=== PATIENT | female | born 1995 | race African-American/Black ===

== ENCOUNTER 2023-06-18 11:38 | Emergency (ER) | payer OTHER ==
[2023-06-18 12:23] VITALS: BP 126/75; PULSE 85; RESP 18; TEMP 99.6; BMI 24.7
[2023-06-18] MEDS ORDERED: KETOROLAC TROMETHAMINE 30 MG/1 ML VIAL ONE (13:13)
[2023-06-18] MEDS ORDERED: ACETAMINOPHEN 500 MG TABLET (FP) ONE (13:14)
[2023-06-18] MEDS: KETOROLAC TROMETHAMINE 30 MG/1 ML VIAL IM ONE (13:20)
[2023-06-18] MEDS: ACETAMINOPHEN 500 MG TABLET (FP) PO ONE (13:21)
== END 2023-06-18 15:09 | disposition home or self-care (01) ==
LOC: JERFT 11:38
PROC: 3E0233Z Introduction of Anti-inflammatory into Muscle, Percutaneous Approach (ICD-10-PCS; principal; 2023-06-18)
DX: M79.604 Pain in right leg (principal); M25.552 Pain in left hip; M25.562 Pain in left knee; M25.572 Pain in left ankle and joints of left foot; W00.0XXA Fall on same level due to ice and snow, initial encounter; Y93.01 Activity, walking, marching and hiking; Y92.481 Parking lot as the place of occurrence of the external cause
CPT/HCPCS: 73502-TC-LT-FY; 73560-TC-LT-FY; 73610-TC-LT-FY; 99284-25